=== PATIENT | female | born 1960 | race Caucasian/White ===

== ENCOUNTER 2021-01-08 07:31 | Emergency (ER) | payer MEDICARE, SELFPAY ==
--- NOTE | ~2021-01-08 | US_ITS ---
EXAMINATION: US abdomen limited DATE: 01/08/2021 09:41 INDICATION: Right upper quadrant abdominal pain. TECHNIQUE: Multiple grayscale and Doppler ultrasound images of the abdomen were obtained. COMPARISON: CT abdomen and pelvis 01/08/2021 FINDINGS: The visualized portions of the head and body of the pancreas are normal. The liver is l without focal lesion. There is normal flow in main portal vein. The gallbladder is normal in size a nd contains gallstones. No gallbladder wall thickening or sonographic Gauthier sign. The common duct is normal and measures 5 mm. IMPRESSION: 1. Cholelithiasis. No evidence of acute cholecystitis. Reviewed, dictated and finalized at location A.
--- NOTE | ~2021-01-08 | CT_ITS ---
EXAMINATION: CT abdomen pelvis w con EXAM DATE: 01/08/2021 08:29 INDICATION: Right upper quadrant pain. TECHNIQUE: Spiral CT of the abdomen and pelvis was performed following intravenous injection of 100 m L Omnipaque 350. Axial, coronal and sagittal images of the abdomen and pelvis were reviewed. The do se-length product (DLP) for this examination was 731.02 mGy-cm. The exposure was tailored according to patient size (auto mA exposure control), and iterative reconstruction (ASIR) was used as additiona l dose reduction technique. There is no prior study for comparison. FINDINGS: The liver, spleen, adrenal glands and pancreas are unremarkable. Gallbladder is unremarkab le. No biliary obstruction. Portal and splenic veins are patent. Kidneys enhance symmetrically. T here is no hydronephrosis. The uterus is not identified and has likely been surgically resected. T he bladder is unremarkable. There is no retroperitoneal or pelvic lymphadenopathy. The appendix is not positively visualized. There is no pericecal inflammatory change to suggest appe ndicitis. There is mild scattered colonic diverticulosis. There is no adjacent inflammatory change t o suggest diverticulitis. The stomach and small bowel are unremarkable. There is expected amount of colonic stool. No free intraperitoneal gas. Mild cardiomegaly. The lung bases are unremarkable. There are no osteoblastic or osteolytic lesions identified. Advanced lower lumbar facet arthropathy. Old right superior and inferior rami fractures. IMPRESSION: 1. Cholelithiasis. Moderately distended gallbladder without adjacent inflammation. If there is right upper quadrant tenderness, could obtain ultrasound. 2. Mild colonic diverticulosis. Reviewed, dictated and finalized at location A. IMPRESSION: 1. Cholelithiasis. Moderately distended gallbladder without adjacent inflammat ion. If there is right upper quadrant tenderness, could obtain ultrasound. 2. Mild colonic diverticulosis.
[2021-01-08 07:36] VITALS: BP 179/73; PULSE 77; RESP 20; TEMP 36.5; O2SAT 100
[2021-01-08 07:57] LABS: Basophils Percent Auto 0.4 % (0.2-1.2); Eosinophils Absolute Auto 0.2 K/mm3 (0-0.3); Eosinophils Percent Auto 1.5 % (0-4.4); Hematocrit 39.6 % (37.0-47.0); Hemoglobin 13.4 g/dL (12.0-15.0); Immature Granulocyte Absolute 0.03 K/mm3 (0.00-0.031); Immature Granulocyte Percent A 0.3 % (0-0.5); Lymphocytes Absolute Auto 0.84 K/mm3 (0.9-3.2); Lymphocytes Percent Auto 8.6 % (18.3-44.2); Mean Corpuscular HGB Conc 33.8 g/dl (32-36); Mean Corpuscular Volume 85.7 fl (80-100); Mean Platelet Volume 10.3 fl (7.4-10.4); Monocytes Absolute Auto 0.6 K/mm3 (0.1-0.6); Monocytes Percent Auto 6.4 % (2.6-8.5); Neutrophils Absolute Auto 8.1 K/mm3 (1.3-6.7); Neutrophils Percent Auto 82.8 % (45.5-73.1); Platelet Count Result 221 k/mm3 (150-375); Red Blood Count 4.62 M/mm3 (4.2-5.4); Red Cell Distribution Width 12.5 % (11.5-14.5); White Blood Count 9.8 K/mm3 (4.5-10.0)
--- NOTE | 2021-01-08 08:05 | ED.ABDPAIN ---
HPI - Abdominal Pain General Chief Complaint: Abdominal Pain Stated Complaint: abd pain Time Seen by Provider: 01/08/21 07:45 Source: patient and RN notes reviewed Mode of arrival: ambulatory Limitations: no limitations History of Present Illness HPI narrative: 61 years old white female presents with right upper quadrant pain started 3 hours prior to arrival to the emergency room associated with nausea,. Patient denies aggravating or relieving factors, had similar symptoms before without a specific diagnosis, patient denies any fever, chills, vomiting, chest pain or urinary symptoms. Patient reported that pain radiates to right flank area. No history of abdominal surgery, patient on baby aspirin once a day. Related Data Allergies Allergy/AdvReac Type Severity Reaction Status Date / Time No Known Allergies Allergy Verified 01/08/21 07:44 Review of Systems Review of Systems: Narrative: CONSTITUTIONAL: Denies fever, chills, or sweats. EYES: Denies visual changes, redness, or discharge. ENT: Denies rhinorrhea, congestion, sore throat, or otalgia. CARDIOVASCULAR: Denies chest pain, palpitations, or edema. RESPIRATORY: Denies cough or dyspnea. GASTROINTESTINAL: Denies abdominal pain, nausea, vomiting, or diarrhea. GENITOURINARY: Denies dysuria or hematuria. SKIN: Denies rash or itching. MUSCULOSKELETAL: Denies back pain, joint pain, or myalgia. NEUROLOGIC: Denies headache, numbness, or weakness. PSYCHIATRIC: Denies anxiety or depression. PMFSH Social History Social History Gender identity (if verbalized by the patient): Female Exam Narrative: Exam Narrative: General appearance: Well-developed, well-nourished Skin: Normal color Head: Normocephalic, nontraumatic Eyes: Clear conjunctiva ENT: Oropharynx normal, ears normal, nose normal Neck: Supple, nontender Chest and respiratory: Airway patent, no respiratory distress, no accessory muscle use Heart: Regular rate/rhythm Abdomen: Soft, nontender, no organomegaly, quiet bowel sounds Vascular: Normal peripheral pulses, normal capillary refill. Musculoskeletal: Normal range of motion, nontender back Neurologic: Alert and oriented ?3, LEAF BINNER is normal as tested, no gross motor deficit Course Course Emergency Course: Stable Vital Signs Vital signs: Vital Signs Temperature 36.5 C 01/08/21 07:36 Pulse Rate 77 01/08/21 07:36 Respiratory Rate 20 01/08/21 07:36 Blood Pressure 179/73 H 01/08/21 07:36 Pulse Oximetry 100 01/08/21 07:36 Temperature 36.5 C 01/08/21 07:36 Pulse Rate 64 01/08/21 09:10 Respiratory Rate 18 01/08/21 09:10 Blood Pressure 130/57 L 01/08/21 09:10 Pulse Oximetry 97 01/08/21 09:10 MDM - Abdominal Pain MDM Narrative Medical decision making narrative: Patient presents with right upper quadrant pain. Cholecystitis is my concern. Labs, CT abdomen pelvis, IV fluid, IV Dilaudid and Zofran ordered. Further plan to follow Differential Diagnosis Differential diagnosis: Likely abdominal pain, acute appendicitis, calculus of kidney, constipation, diverticulitis and pancreatitis Lab Data Result diagrams: 01/08/21 07:46 01/08/21 07:46 Labs: Lab Results 01/08/21 01/08/21 01/08/21 Range/Units 07:46 07:46 08:45 WBC 9.8 (4.5-10.0) K/mm3 RBC 4.62 (4.2-5.4) M/mm3 Hgb 13.4 (12.0-15.0) g/dL Hct 39.6 (37.0-47.0) % MCV 85.7 (80-100) fl MCH 29.0 (26-34) pg MCHC 33.8 (32-36) g/dl RDW 12.5 (11.5-14.5) % Plt Count 221 (150-375) k/mm3 MPV 10.3 (7.4-10.4) fl Immature Gran % (Auto) 0.3 (0-0.5) % Neut % (Auto) 82.8 H (45.5-73.
[2021-01-08] MEDS: SODIUM CHLORIDE 0.9% IV 1,000 ML 999 ML IV CONT (08:07)
[2021-01-08] MEDS: ONDANSETRON INJ 4 MG/2 ML VIAL IV PUSH (08:09)
[2021-01-08] MEDS: HYDROmorphone HCL INJ (*CRX) 1 MG/ML SYR 0.5 MG IV PUSH (08:10)
[2021-01-08 08:11] LABS: Alanine Aminotransferase 63 U/L (4-35); Albumin Level 4.2 g/dL (3.5-5.1); Alkaline Phosphatase 108 U/L (38-126); Anion Gap 6 mmol/L (8-16); Aspartate Amino Transferase 131 U/L (14-36); Bilirubin,Total 1.3 mg/dL (0.2-1.3); Blood Urea Nitrogen 22 mg/dL (7-17); Calcium 9.1 mg/dL (8.4-10.2); Carbon Dioxide 25 mmol/L (22-30); Chloride 107 mmol/L (98-107); Estimated CRCL calculation 63 ml/min; Estimated Glomerular Filt Rate > 60; Glucose 114 mg/dL (65-105); Lipase 70 U/L (23-300); Potassium 4.4 mmol/L (3.4-5.0); Sodium 138 mmol/L (137-145)
[2021-01-08 09:07] LABS: Add Urine Microscopic? YES; Appearance Urine Clear (Clear); Bilirubin Urine Negative (Negative); Blood Urine Negative (Negative); Color Urine Yellow (Yellow); Glucose Urine UA Negative (Negative); Ketones Urine Negative (Negative); Leukocyte Esterase Ur Trace LEU/UL (Negative); Nitrate Urine Negative (Negative); Protein Urine 1+ mg/dL (Negative); Urobilinogen Urine Negative mg/dL (<2.0)
[2021-01-08 09:10] VITALS: BP 130/57; PULSE 64; RESP 18; O2SAT 97
[2021-01-08 09:16] LABS: Specific Grav Ur 1.049 (1.001-1.035)
[2021-01-08 09:21] LABS: RBC Urine 0-2 /hpf (0-2); Squamous Epithelial Cell Urine Few /hpf (Few)
[2021-01-08 09:22] LABS: WBC Urine 0-3 /hpf
[2021-01-08 11:16] VITALS: BP 136/67; PULSE 63; RESP 17; O2SAT 98
== END 2021-01-08 11:18 | disposition home or self-care (01) ==
PROVIDERS: Emergency Provider Emergency Medicine
DX: K80.20 Calculus of gallbladder without cholecystitis without obstruction (principal)
CPT/HCPCS: 36415; 74177; 76705; 80053; 81001; 83690; 85025; 96361; 96374; 96375; 99284; J1170; J2405; J7030; Q9967